=== PATIENT | female | born 1960 | race African-American/Black ===

== ENCOUNTER 2018-05-18 11:36 | Outpatient (CLI) | payer MEDICARE, OTHER | END 2018-05-18 23:59 | disposition home or self-care (01) | LOC: D.MAMMO 11:36 | DX: Z12.31 Encounter for screening mammogram for malignant neoplasm of breast (principal) ==

== ENCOUNTER → 2018-06-19 16:09 | Outpatient (CLI) | payer MEDICARE, OTHER | END | disposition home or self-care (01) | LOC: D.MAMMO 10:30 | DX: R92.8 Other abnormal and inconclusive findings on diagnostic imaging of breast (principal) ==

== ENCOUNTER 2019-10-28 08:30 | Day surgery (SDC) | payer MEDICARE, OTHER ==
[~2019-10-28] VITALS: Ht 165.1 cm; Wt 74.1 kg
[~2019-10-28 08:30] MED LIST: CATAPRES0.1 MG PO; ELAVIL25 MG PO; METHOCARBAMOL 500 MG; NEURONTIN 300300 MG PO; NORVASC10 MG PO; ZOLOFT50 MG PO
[2019-10-28 09:03] LABS: HEMATOCRIT 42.2 % (36.0-48.0); HEMOGLOBIN 13.4 g/dL (12-16); MCH 26.5 pg (26.0-34.0); MCHC 31.8 g/dL (31.0-37.0); MCV 83.6 fL (80.0-100.0); MEAN PLATELET VOLUME 8.6 fL (7.4-10.4); RBC 5.05 10x6/uL (4.00-5.40); RDW 14.3 % (11.5-14.5)
[2019-10-28 09:40] VITALS: BP 144/83; Ht 165.1 cm; Wt 74.1 kg
[2019-10-28] MEDS ORDERED: HYDROCODON-ACE1 EAC7 PO (11:00)
[2019-10-28] MEDS ORDERED: TUCKS MEDICATE1 EACH TOPICAL (11:00)
[2019-10-28] MEDS ORDERED: MIRALAX17 GM PO (11:00)
--- NOTE | 2019-10-28 12:22 | NUR ---
PT VOIDED. DC INSTRUCTIONS GIVEN TO PT/FAMILY. STATE UNDERSTANDING. DC'D IV CATH FULLY INTACT.
--- NOTE | 2019-10-28 12:35 | NUR ---
PT LEFT UNIT VIA WC AT 1225
== END 2019-10-28 12:29 | disposition home or self-care (01) ==
LOC: D.OPS 08:30 → D.PAN 10:00 → D.OPS 10:00
PROVIDERS: Anesthesiology; ATTEND Surgery
DX: K64.8 Other hemorrhoids (principal); I10 Essential (primary) hypertension